=== PATIENT | male | born 1995 | race Caucasian/White ===

== ENCOUNTER 2023-08-01 14:00 | Outpatient (RCR) | payer SELFPAY, OTHER ==
--- NOTE | 2023-06-26 10:23 | HP.OTEVAL ---
Patient's Visit Information Visit Information Visit Information: SAVAGE GODINEZ is a 27 year old M, referred to Occupational Therapy by PHILIPPE RAND, with a diagnosis of closed fx of capitulum of L humerus, ulnar +radial imelda lig tear. Date of Evaluation: 06/26/23 Occupational Therapist: Melissa Tate Subjective Subjective: Arrived s/p elbow injury May 31 from falling off a ladder. Patient tore ulnar and radial collateral ligament and fractured capitulum of left humerus. No recommended surgery. Patient is in a T rom brace, locked at 90 deg overnight and movement 70-90 deg during the day. Patient does not have a protocol for the ligament repair or bone healing with him this date. Patient has been wearing the T ROM brace since June 19. Patient is right hand dominant. 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 Patient has a follow-up with [facility] on July 15. 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 ADLs Comments: Patient lives with his but has been able to complete most daily functions independently. He reports some difficult getting comfortable for sleeping with the brace. Pain L elbow: Current Pain Intensity: 0 Objective Objective/Observation: minimal swelling, no bruising ROM Elbow: left flexion 90, extension - 45 Forearm: left pronation 90 deg, supination 15 deg past neutral Wrist: left flexion 75, extension 63 Edema Elbow: 12.5 inches circumference elbow joint Sensation Sensation Comments: normal sensation, does not have any tingling or numbness some sensitivity to the touch medial elbow Quick DASH-Disab of Arm,Shoulder& Hand Quick DASH Score: 72.7250 Goals Goal:: Patient will improve L elbow ROM to 90% of full ROM to improve functional use for ADL's by d/c. Goal:: Patient will improve functional use of left arm for ADL's evidenced by increased ROM of forearm to 90% of full ROM by d/c. Goal:: Patient will be independent with home exercise program per patient report and observation in clinic. Rehabilitation General Assessment: Patient presents 3 weeks 5 days s/p fall resulting in distal left humerus fracture and ulnar and radial collateral ligament tears. Patient has been in a T-ROM brace since June 19 locked between 70 - 90 deg during the day and static 90 deg at night. Patient reports swelling, bruising, and pain has significantly reduced since injury. Patient would benefit from skilled occupational therapy to progress range of motion and function in the left arm. Rehabilitation Potential: Good Anticipated Interventions Anticipated Interventions: A/AAROM/PROM, Strengthening, Edema Control, Triggerpoint Release and Desensitization Visit Plan Frequency: 1x/Week Duration: 6 Weeks General Plan: 1x/week for 6 weeks scheduled, will start with short arc ROM exercises at the elbow and AROM exercises wrist, hand, and shoulder. Recommended hold at end range for 3-5 sec at a time when performing gently elbow ROM. TEXT: Thank you for the opportunity to evaluate your patient. For Medicare and Medicare HMO plans, please review the plan of care and approve it. It will need to be FAXED BACK to us at [phone] for Medicare purposes. Please let me know if there are questions or concerns regarding this plan of care. Physician Signature: Date:
== END 2023-08-01 19:00 | disposition home or self-care (01) ==
LOC: OT 14:00
PROVIDERS: PCP Family Medicine
DX: S42.452D Displaced fracture of lateral condyle of left humerus, subsequent encounter for fracture with routine healing (principal)
CPT/HCPCS: 97110; 97140; 97165; 97530

== ENCOUNTER → 2025-05-13 | Outpatient (CLI) | payer SELFPAY, OTHER ==
--- NOTE | 2025-05-13 12:36 | ECHOD_ITS ---
Reason For Study Reason For Study: HCM Procedure This was a 2D Doppler, Color Flow transthoracic echocardiogram. Exam performed in department. Left Ventricle Normal LV size. The left ventricular ejection fraction is 60 %. Right Ventricle Normal RV size. Normal systolic function. Atria Normal left atrium. Normal right atrium. Mitral Valve Normal mitral valve. Tricuspid Valve Normal tricuspid valve. Aortic Valve Trisinus/trileaflet aortic valve. Pulmonic Valve Normal pulmonic valve. Great Vessels Normal aortic root. The pulmonary artery is normal size. Normal inferior vena cava. Pericardium/Pleural No pericardial effusion. MMode/2D Measurements & Calculations LVIDd: 4.4 cm IVSd: 1.0 cm Ao root diam: 3.1 cm LVIDs: 3.0 cm LVPWd: 1.0 cm RVDd: 3.4 cm FS: 31.6 % LAV(MOD-bp): 44.3 ml LVAd ap4: 35.8 cm2 LVAd ap2: 36.9 cm2 LAV(MOD-bp) Indexed: 19.3 ml/m2 LVLd ap4: 8.8 cm LVLd ap2: 9.5 cm LAV(MOD-sp2): 50.3 ml EDV(MOD-sp4): 113.9 ml EDV(MOD-sp2): 120.3 ml LAV(MOD-sp4): 35.5 ml EDV(sp4-el): 123.5 ml EDV(sp2-el): 121.0 ml LVAs ap4: 21.5 cm2 LVAs ap2: 23.2 cm2 LVLs ap4: 7.4 cm LVLs ap2: 8.5 cm ESV(MOD-sp4): 52.9 ml ESV(MOD-sp2): 55.1 ml ESV(sp4-el): 53.3 ml ESV(sp2-el): 54.2 ml EF(MOD-sp4): 53.5 % EF(MOD-sp2): 54.2 % EF(sp4-el): 56.8 % SV(MOD-sp4): 60.9 ml SV(MOD-sp2): 65.2 ml SV(sp4-el): 70.2 ml SI(MOD-sp4): 26.6 ml/m2 SI(MOD-sp2): 28.4 ml/m2 LA A4 area: 14.2 cm2 LA dimension(2D): 3.6 cm RA A4 area: 14.6 cm2 TAPSE: 2.1 cm Time Measurements MV dec time: 0.17 sec Doppler Measurements & Calculations MV E max isaak: 85.6 cm/sec Lat Peak E' Isaak: 14.8 cm/sec Med Peak E' Isaak: 11.8 cm/sec MV A max isaak: 51.7 cm/sec E/E' lat: 5.8 E/E' med: 7.2 MV E/A: 1.7 Ao V2 max: 142.2 cm/sec LV V1 max: 112.8 cm/sec MV dec slope: 516.8 cm/sec2 Ao max P.1 mmHg LV V1 max P.1 mmHg Ao V2 mean: 99.1 cm/sec LV V1 mean P.0 mmHg Ao mean P.4 mmHg LV V1 mean: 80.9 cm/sec Ao V2 VTI: 27.4 cm LV V1 VTI: 24.5 cm AV (velocity ratio): 0.89 PA V2 max: 100.3 cm/sec ECHO/Echo Complete Interpretation Summary The left ventricular ejection fraction is 60 %. The global longitudinal strain = -19.8 % (normal). The global longitudinal stra in is normal. Structurally normal valves. Ordering Physician: Andrae Voss Referring Physician: Andrae Voss Performed By: Jovita Briceño RDCS
== END | disposition home or self-care (01) ==
LOC: CVS 12:36
PROVIDERS: PCP Family Medicine; Referring Provider Internal Medicine Cardiovascular Disease; Visit Provider Internal Medicine Cardiovascular Disease
DX: I42.0 Dilated cardiomyopathy (principal)
CPT/HCPCS: 93306